=== PATIENT | female | born 1980 | race Caucasian/White ===

== ENCOUNTER 2019-11-19 08:23 | Outpatient (CLI) | payer BC, SELFPAY ==
--- NOTE | 2019-11-19 | USCV_ITS ---
Hilario Culver Age: 38 Gender: F : 1980 Exam Date: 11/19/2019 08:56 Ordering Phys: Technologist: Sarah Guardado [place] [facility] [place]: ASD BP: / HR: 83 Rhythm: Sinus Technical Quality: Good MEASUREMENTS (Male / Female) Normal Values 2D ECHO LV Diastolic Diameter PLAX 4.8 cm 4.2 - 5.9 / 3.9 - 5.3 cm LV Systolic Diameter PLAX 3.2 cm LV Chamber Size 4.5 cm IVS Diastolic Thickness 0.9 cm 0.6 - 1.0 / 0.6 - 0.9 cm IVS Systolic Thickness 1.2 cm LVPW Diastolic Thickness 0.7 cm 0.6 - 1.0 / 0.6 - 0.9 cm LVPW Systolic Thickness 1.0 cm RV Chamber Size 3.3 cm LVOT Diameter 2.0 cm LV Ejection Fraction 2D Teich 61.5 % LV Ejection Fraction MOD 2C 52.5 % LV Ejection Fraction 2C AL 54.8 % LA Diameter 2.7 cm LA Width 2.8 cm LA Height 3.6 cm RA Width 2.8 cm RA Height 4.3 cm Aorta at Sinotubular Diameter 2.5 cm M-MODE LV Diastolic Diameter MM 4.8 cm 4.2 - 5.9 / 3.9 - 5.3 cm LV Systolic Diameter MM 2.9 cm LV Ejection Fraction MM Teich 69.7 % IVS Diastolic Thickness MM 0.8 cm 0.6 - 1.0 / 0.6 - 0.9 cm IVS Systolic Thickness MM 1.2 cm LVPW Diastolic Thickness MM 0.7 cm 0.6 - 1.0 / 0.6 - 0.9 cm LVPW Systolic Thickness MM 1.1 cm RV Diastolic Diameter MM 1.2 cm Aortic Annulus Diameter 2.8 cm LA Ao Ratio MM 1.0 MV E Point Septal Separation 0.5 cm DOPPLER AV Peak Velocity 109.0 cm/s LVOT Peak Velocity 93.0 cm/s AV Area Cont Eq vti 2.5 cm squared AV Area Cont Eq pk 2.7 cm squared MV Area PHT 3.4 cm squared Mitral E to A Ratio 1.3 MV E' Velocity 10.0 cm/s Mitral E to MV E' Ratio 9.2 Mitral E to LV E' Lateral Ratio 8.0 Mitral E to LV E' Septal Ratio 11.0 TR Peak Velocity 253.7 cm/s TR Peak Gradient 25.8 mmHg TR Mean Velocity 214.5 cm/s TR Mean Gradient 19.2 mmHg TR Velocity Time Integral 84.9 cm TV Peak E Velocity 60.0 cm/s Right Atrial Pressure 3.0 mmHg Pulmonary Artery Systolic Pressu 28.7 mmHg PV Peak Velocity 64.0 cm/s FINDINGS Left Ventricle Normal left ventricular size, systolic function and wall thickness, with no regional wall motion abnormalities. Left ventricular ejection fraction is estimated at 60 %. Normal diastolic function. Right Ventricle Normal right ventricular size and systolic function, RVSP 28.7 mmHg. Right Atrium Normal right atrial size. Right atrial pressure estimated at 3 mm Hg. No evidence of ASD/ PFO by bubble study. Left Atrium Normal left atrial size. Mitral Valve Structurally normal mitral valve. No mitral valve stenosis. Trace mitral valve regurgitation. Aortic Valve Structurally normal trileaflet aortic valve. No aortic valve stenosis. No aortic valve regurgitation. Tricuspid Valve Structurally normal tricuspid valve. Trace tricuspid valve regurgitation. Pulmonic Valve Structurally normal pulmonic valve. No pulmonary valve stenosis. No pulmonary valve regurgitation. Pericardium No pericardial effusion. Aorta Normal-sized aortic root. CONCLUSIONS 1. Normal left ventricular size, systolic function and wall thickness, with no regional wall motion abnormalities. Left ventricular ejection fraction is estimated at 60 %. Normal diastolic function. 2. Normal right ventricular size and systolic function, RVSP 28.7 mmHg. 3. No significant valvular abnormality. 4. The previously noted ASD/ PFO was not visualized on this study. MAI is recommended if clinically indicated. Kyara Arora MD (Electronically Signed) Final Date: 22 November 2019 22:38 S
== END 2019-11-19 08:24 | disposition home or self-care (01) ==
LOC: RAD 08:27
PROVIDERS: PCP Nurse Practitioner Family; Visit Provider Internal Medicine Cardiovascular Disease
DX: Q21.1 Atrial septal defect (principal)
CPT/HCPCS: C8929

== ENCOUNTER → 2019-12-16 15:35 | Outpatient (BNVA) | payer BC, SELFPAY | PROVIDERS: Family Provider Nurse Practitioner Family; Visit Provider Obstetrics & Gynecology | DX: N92.1 Excessive and frequent menstruation with irregular cycle (principal) | CPT/HCPCS: 80053; 81001 ==

== ENCOUNTER 2019-12-22 11:03 | Inpatient (IN) | payer BC, SELFPAY ==
[2019-12-22] VITALS (29 sets, daily range): BP systolic 99–135; BP diastolic 61–78; PULSE 59–88; RESP 14–108; TEMP 36.3–37; O2SAT 93–99; BMI 29.9
[2019-12-22 06:05] LABS: OR HCG Qualitative Urine Negative (Negative)
--- NOTE | 2019-12-22 06:25 | ANES.PREANE2 ---
Pre-Anesthetic Assessment Pre-Anesthetic Assessment: Height/Weight: Height 1.65 m Weight 81.647 kg Temp Pulse Resp BP Pulse Ox 97.4 F L 84 18 109/66 97 12/22/19 06:07 12/22/19 06:07 12/22/19 06:07 12/22/19 06:07 12/22/19 06:07 Preop Diagnosis: Uterine fibroids, Menorhagia, Dysmenorrhea Proposed Procedure: Operation Date: 12/22/19 07:00 Proposed Procedures p Total Abdominal Hysterectomy/vertical incision 86571 D21.9 N92.0 N94.6 N39.3(Not Applicable) - Julio Cesar Mares MD s Salpingo Oophorectomy (Open)(Not Applicable) - Julio Cesar Mares MD Familial anesthetic complications: None Last intake: last took lovenox last night, NPO > 8 hrs No phentermine since december 03 Social: Social History: Tobacco and No alcohol Exam: Pre-Anes Outpt Exam: alert, oriented x 3, clear to auscultation bilaterally and regular rate & rhythm Airway: Cervical ROM: WNL MP: 1 Dentition: Other (pulled ) Pulmonary: Pulmonary: None reported CV/HEM: Comments: PFO w/ clot that landed in kidney in 2007 : : None reported Hepatic: Hepatic: None reported GI: GI: None reported Metabolic: Metabolic: Hyperlipidemia Musc/skel: Musc/skel: None reported Neuropsych: Neuropsych: None reported Anesthetic Plan: ASA status: 3 Anesthesia: General Risk of > 500 ml blood loss (7ml/kg in children): No PFSH Anesthesia PFSH: Medical History Chronic anticoagulation 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 Reported to be secondary to clot passing through patent foramen ovale. Work-up included negative beta-2 glycoprotein and cardiolipin, [place] [address] (see scanned lab reports) Hyperlipidemia Patent foramen ovale With right to left cardiac shunt. 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 Surgical History History of cholecystectomy (~1996) [facility] Family History Family/Other Breast cancer maternal great aunt Ovarian cancer maternal aunt Heart disease paternal family in general Mother Stroke Grandfather Hypertension paternal Hypercholesteremia maternal Father Diabetes Hypertension Social History Smoking and tobacco status: current every day smoker cigarettes Packs smoked per day: 0.5 Alcohol intake: never Female Reproductive History: Date of last menstrual period: 12/07/19 Data Anesthesia Other Labs: Laboratory Results - last 48 hr 12/22/19 06:01 Urine HCG, Qual Negative Cardiac Studies: Echocardiogram 11/19/19
[2019-12-22] MEDS: sodium chloride 0.9% 1,000 ML 30 ML IV (06:39)
[2019-12-22 06:41] LABS: Basophils # 0.1 10^3/uL (0.0-0.1); Basophils % 0.8 %; Eosinophils # 0.3 10^3/uL (0.0-0.8); Eosinophils % 3.6 %; Hematocrit 42.2 % (37.0-47.0); Hemoglobin 13.7 g/dL (11.5-15.3); Lymphocytes # 3.3 10^3/uL (0.8-4.8); Lymphocytes % 35.1 %; Mean Corpuscular HGB Conc 32.5 g/dL (30.0-36.0); Mean Corpuscular Hemoglobin 29.1 pg (28.0-34.0); Mean Corpuscular Volume 89.6 fL (81-99); Mean Platelet Volume 10.5 fL (7.4-10.4); Monocytes # 0.5 10^3/uL (0.2-0.9); Monocytes % 5.2 %; Neutrophils # 5.22 10^3/uL (1.8-7.7); Neutrophils % 54.9 %; Nucleated Red Blood Cells % 0 %; Platelet Count 261 10^3/cmm (130-400); Red Blood Count 4.71 10^6/uL (4.1-5.3); Red Cell Distribution Width 13.1 % (12.1-15.1); White Blood Count 9.5 10^3/uL (4.0-10.0)
[2019-12-22] MEDS: ketorolac 30 mg/mL INJ IVP ×3 (06:41→19:59)
[2019-12-22] MEDS: phenazopyridine 100 mg Tablet 200 MG PO ×3 (06:42→20:22)
--- NOTE | 2019-12-22 06:44 | P.HPUD_ITS ---
Surgery/Procedure H&P Update DATE OF PROCEDURE: December 22, 2019 DATE H&P PERFORMED: 12/03/19 H&P UPDATE INFORMATION: I have reviewed H&P completed within last 30 days, I have examined patient prior to procedure, No changes to prior documentation and H&P is in [facility] [place] EMR on date indicated PREOP DIAGNOSIS: Uterine fibroids, Menorhagia, Dysmenorrhea PLANNED PROCEDURE: Operation Date: 12/22/19 07:00 Proposed Procedures p Total Abdominal Hysterectomy/vertical incision 81510 D21.9 N92.0 N94.6 N39.3(Not Applicable) - Julio Cesar Mares MD s Salpingo Oophorectomy (Open)(Not Applicable) - Julio Cesar Mares MD Related Problem List Diagnoses (1) Fibroids: (2) Menorrhagia: Qualifiers: Menorrhagia type: with irregular cycle Qualified Code(s): N92.1 - Excessive and frequent menstruation with irregular cycle (3) Dysmenorrhea:
[2019-12-22 06:53] LABS: INR 0.99 (0.8-1.2)
--- NOTE | 2019-12-22 08:08 | SUR.OPER ---
Called and updated on surgical progress.
--- NOTE | 2019-12-22 09:22 | SUR.OPER ---
notified of surgical progress.
--- NOTE | 2019-12-22 09:35 | PM.OP ---
Operative Report Date of procedure: December 22, 2019 Pre-op Diagnosis: Uterine fibroids, Menorhagia, Dysmenorrhea Post-op Diagnosis: Uterine fibroids, Menorrhagia, Dysmenorrhea Procedure Done: Total abdominal hysterectomy with bilateral salpingectomy Specimens removed/disposition: Uterus, cervix, bilateral fallopian tubes Surgeon: Julio Cesar Mares Costumed Character: None Anesthesia: General Estimated blood loss (mL): 125 IV fluids (mL): 1,300 Urine output (mL): 125 Complications: None Findings: Several small submucosal fibroids with a large approximately 6 cm anterior lower uterine segment fibroid. Left corpus luteal cyst identified. Brief History: Patient is a 39-year-old white female 2, para 2 who had presented to the office reporting an approximately 10-year history of worsening bleeding problems. She typically will bleed 5 to 9 days at a time with a number of heavy days varying from cycle to cycle. She typically changes a pad and a tampon at least every hour and will bleed through to her clothing with almost every menses. She typically does not leave home when she is on her menses due to the heaviness of the bleeding. She reports the passage of up to baseball sized clots at times. She also reports significant cramping with the periods and typically uses Flexeril to help with the cramping. She is on long-term anticoagulation therapy which is thought to be contributing to the heaviness of her bleeding. She had an ultrasound performed which showed an approximately 5 cm fibroid in the anterior uterus. Other small fibroids were also noted. Treatment options were discussed with her. Due to the location of the fibroid and no significant uterine descent, decision was made to proceed with an abdominal hysterectomy. Because of need for anticoagulation therapy to start shortly after surgery, vertical incision was recommended to limit dissection of the anterior abdominal wall. She is presenting for surgery at this time. Procedure: Patient was taken to the operating room were general anesthesia was obtained. She was prepped and draped in usual sterile fashion in a dorsal supine position. Sequential compression boots were placed prior to starting the case. Chance catheter was inserted. A vertical lower abdominal skin incision was made with a knife and carried down to the underlying fascia with electrocautery. Fascia was incised in the midline extended superiorly and inferiorly with Islas scissors. Rectus muscles were in the midline. Peritoneum was sharply entered. Peritoneal incision was extended superiorly and inferiorly with good visualization of the bladder. A Bookwalter retractor was placed and bowel was then packed with wet laparotomy sponges. The uterus was inspected and she was noted to have multiple small subserosal fibroids with an approximately 6 cm anterior lower uterine segment fibroid which made it very difficult to visualize the bladder area. The corners of the uterus were grasped with Maggy clamps. The right round ligament was doubly clamped, cut, and then suture ligated with 0 Vicryl suture. Broad ligament was opened and extended superiorly and inferiorly. A window was made in the medial leaf of the broad ligament underneath the utero-ovarian ligament. Straight clamps were placed across the tube, utero-ovarian ligament, and vessels. This was cut and then tied with near and far stitch of 0 Vicryl suture. It was tied with a free tie of 0 Vicryl suture. The left round ligament was doubly clamped, cut, and suture ligated with 0 Vicryl suture. Broad ligament was opened and extended superiorly and inferiorly. Window was made in the medial leaf of the broad ligament underneath the utero-ovarian ligament. Straight clamps were placed across the tube, utero-ovarian ligament, and vessels. This was cut and then tied with a near and far stitch of 0 Vicryl suture. Was tied with a free tie of 0 Vicryl suture. Uterine vessels were skeletonized. Curved clamp was placed across the uterine vessels at the upper edge of the lower uterine segment bilaterally. In order to facilitate visualization of the cervix area, decision was made to amputate the main body of the uterus at the upper edge of the lower uterine segment, which would also get the fibroid out of the way. Using a knife, the uterus was amputated. The uterine vessels were tied with 0 Vicryl suture bilaterally. Bladder was then dissected off of the lower uterine segment bluntly. Using straight clamps, the uterine vessels were clamped along the cervix bilaterally. The pedicles were then cut and then tied with 0 Vicryl suture. This was repeated on both sides until the upper edge of the vagina was reached. At this point curved clamps were placed across the vagina just below the cervix. The cervix was then amputated from the vagina using Carla scissors. The right corner was tied with 0 Vicryl suture in a Kaylyn fashion. The left corner of the cuff was tied with 0 Vicryl suture in a Kaylyn fashion. However during the securing of the stitch, the suture broke. At this point the area had already been unclamped. As a result the corner was secured with a [id number] stitch of 0 Vicryl suture. Because the majority of the cuff was now open, the edges of the vaginal cuff were oversewn with 0 Vicryl suture in a running locking fashion. The anterior and posterior portion of the cuff was then closed using 0 Vicryl suture in an interrupted [id number] fashion until the cuff was completely closed. Both ovaries were inspected and were normal in appearance. She did have a left corpus luteal cyst present. The left fallopian tube was grasped with a Carson clamp. Clamps were placed across the mesosalpinx and the tube excised. The pedicles were tied with 0 Vicryl suture. This was repeated on the contralateral side in a similar fashion. Both fallopian tubes were removed. Pelvis was then thoroughly irrigated and noted to be hemostatic. All pedicles were inspected and noted to be hemostatic. Packing and Bookwalter retractor were removed. The peritoneum, rectus muscles, and fascia was closed as a mass closure using looped 0 PDS suture. Subcutaneous layer was reapproximated using 3-0 plain suture in a running fashion. Skin was reapproximated using skin herminia. DRAINS: Chance catheter POSTOPERATIVE STATUS: The patient was transferred to the recovery room in satisfactory condition.
[2019-12-22] MEDS: fentaNYL 50 mcg/mL INJ 2mL IVP ×2 (09:40→09:54)
[2019-12-22] MEDS: morphine 4 mg/mL SDV 1 mL 2 MG IVP ×2 (10:06→10:19)
--- NOTE | 2019-12-22 10:59 | SUR.PHASEI ---
1050 PT AWAKES TO VOICE EASILLY PT TO FLOOR PER CART HANDOFF AT BEDSIDE WITH JYOTSNA RN, PT MOVES SELF TO BED ABD DRESSING D/I , BILAT SCDS ON AND WORKING, IV PATENT, CAMPUZANO TO DD SMALL AMT ORANGE URINE NOTED APPROX 50 ML NOT EMPTIED, PT STATES PAIN IS UNCHANGED FROM EARLIER BUT FACE SCALE 3 AND MUCH MORE RELAXED. BP 111/72 HR 72 RESP 18 , SATS 94% ON RA.
[2019-12-22 11:37] LABS: Specific Gravity, Urine 1.025 (1.005-1.030); Urine Appearance Clear (CLEAR); Urine Color Orange (Yellow); pH Urine 5 (5-7)
[2019-12-22 11:38] LABS: Add Urine Culture? Yes; Add Urine Microscopic? YES; Bacteria Urine 1+; Bilirubin Urine 1+ (NEGATIVE); Blood Urine 2+ (Negative); Glucose Urine UA Norm (Normal); Ketones Urine Negative (Negative); Leukocyte Esterase Urine Negative (Negative); Nitrate Urine Positive (Negative); Protein Urine 1+ (Negative); Squamous Epithelial Cell Urine 0-4 (0-5); Urobilinogen Urine 1 mg/dL (Negative); WBC Urine RARE /hpf (0-5)
[2019-12-22] MEDS: dextrose 5%-lactated ringers 1,000 ML 125 ML IV ×2 (12:13→19:59)
[2019-12-22] MEDS: morphine 4 mg/mL SDV 1 mL IVP (13:04)
[2019-12-22] MEDS: ondansetron 2 mg/ML SDV 2 mL 4 MG IVP (13:12)
[2019-12-22] MEDS: HYDROcodone-acetaminophen 5-325 mg Tablet PO ×2 (15:01→20:22)
--- NOTE | 2019-12-22 16:00 | PC.NURSE ---
pt got self up to bathroom, did not void in hat. reports sounded like alot
[2019-12-22] MEDS: HYDROmorphone 1 mg/mL INJ 1 mL 0.5 MG IVP ×2 (16:11→17:55)
[2019-12-22] MEDS: enoxaparin 80 mg/0.8 mL Syringe SUBCUT (17:54)
[2019-12-22] MEDS: docusate sodium 100 mg Capsule PO (17:55)
[2019-12-23] MEDS: ketorolac 30 mg/mL INJ IVP ×2 (00:35→06:02)
[2019-12-23 03:59] VITALS: BP 108/63; PULSE 68; RESP 16; TEMP 36.8; O2SAT 98
[2019-12-23] MEDS: dextrose 5%-lactated ringers 1,000 ML 125 ML IV (04:30)
[2019-12-23] MEDS: HYDROcodone-acetaminophen 5-325 mg Tablet PO ×3 (04:43→15:52)
[2019-12-23 04:45] LABS: Hematocrit 35.3 % (37.0-47.0); Hemoglobin 11.4 g/dL (11.5-15.3); Mean Corpuscular HGB Conc 32.3 g/dL (30.0-36.0); Mean Corpuscular Volume 89.8 fL (81-99); Mean Platelet Volume 10.4 fL (7.4-10.4); Platelet Count 225 10^3/cmm (130-400); Red Blood Count 3.93 10^6/uL (4.1-5.3); Red Cell Distribution Width 13.2 % (12.1-15.1); White Blood Count 13.9 10^3/uL (4.0-10.0)
--- NOTE | 2019-12-23 07:08 | PM.PN ---
Subjective Subjective: Interval history: Patient reports feeling a little better this morning. States her pain has been controlled with the pills. She denies shortness of breath or chest pains. She denied lightheadedness or dizziness with ambulation. She denied nausea or vomiting. She denied passing flatus. She reports she has been urinating frequently. Vitals/I&O/Wt Last Vital Signs Temp 98.3 F 12/23/19 03:59 Pulse 68 12/23/19 03:59 Resp 16 12/23/19 03:59 BP 108/63 12/23/19 03:59 Pulse Ox 98 12/23/19 03:59 12/22/19 12/23/19 12/23/19 22:59 06:59 14:59 Intake Total 970.833 / 2830.833 1000 / 3830.833 Output Total 800 / 1825 2350 / 4175 Balance 170.833 / 1005.833 -1350 / -344.167 Weight last 48 hrs Weight 179 lb 15.766 oz Physical Exam Const: COMMON NORMALS: no acute distress, average body habitus, alert and well nourished GENERAL APPEARANCE: well developed ORIENTATION/CONSCIOUSNESS: Yes oriented to person, Yes oriented to place and Yes oriented to time Resp: COMMON NORMALS: normal respiratory effort and clear to auscultation bilaterally AUSCULTATION: clear to auscultation bilaterally Cardio: COMMON NORMALS: regular rate, regular rhythm, No gallops present (Cardio), No murmurs present (Cardio) and No rub (Cardio) RATE: regular rate RHYTHM: regular rhythm PERIPHERAL PULSES: posterior tibial pulses present GI: COMMON NORMALS: Soft to palpation, No hepatosplenomegaly present and no masses INSPECTION: Yes incision (Dressing is dry.) AUSCULTATION: Yes Hypoactive bowel sounds present (With minimal bowel sounds present) PALPATION: Yes Soft to palpation, Yes Tenderness to palpation present (GI) (In the lower abdomen.), Yes No hepatosplenomegaly present and No Hernia present : EXTERNAL FEMALE EXAM: No Hernia present Extremity: COMMON NORMALS: no clubbing, cyanosis or edema and no calf tenderness Neuro: SENSORIUM/ORIENTATION: Yes alert, Yes oriented to person, Yes oriented to place and Yes oriented to time Psych: COMMON NORMALS: normal affect MOOD & AFFECT: Yes euthymic mood Urinary Catheter Management^: Chance: Cath Placed During This Visit: yes, but has since been removed by the nurse Reason for Continuing Indwelling Catheter: Perioperative Use in Selected Surgeries Urinary Catheter Date of Insertion: 12/22/19 Urinary Catheter Time of Insertion: 07:15 Date Urinary Catheter Removed: 12/22/19 Time Urinary Catheter Discontinued: 12:35 Data : 12/23/19 04:36 A&P Assessment and plan (1) Fibroids: Postoperative day 1, status post ANA MARÍA with bilateral salpingectomy. Surgical findings were reviewed with the patient. She had a large lower uterine segment fibroid pushing on the bladder. Discussed with patient that a lot of the lower abdominal discomfort may be related to the bladder irritation from the surgery and where this fibroid was located. She did report some improvement and her discomfort/pain after removal of the catheter but it is not completely gone away. Discussed with her that the pain will take time to go away. She has been continued on oral pain medication with Dilaudid available for breakthrough pain if needed. Keep n.p.o. except for ice chips and sips until good bowel sounds present. Continue with IV fluids. Encourage ambulation. May shower later today if desired. Status: Acute (2) Menorrhagia: Status: Acute Qualifiers: Menorrhagia type: with irregular cycle Qualified Code(s): N92.1 - Excessive and frequent menstruation with irregular cycle (3) Dysmenorrhea: Status: Acute (4) Chronic anticoagulation: Patient is on chronic anticoagulation with Coumadin due to a paradoxical embolism to the kidney. She has a small PFO in her heart previously noted. Patient had been switched from Coumadin to Lovenox prior to surgery. She was restarted on Lovenox last night. If she does well through the day here plan is to restart Coumadin this evening. She will need to be continued on Lovenox until her INR indicates therapeutic levels. Status: Acute Attestations Medical Necessity Statement*: Patient is still n.p.o. due to lack of bowel sounds following abdominal surgery. 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
[2019-12-23] MEDS: phenazopyridine 100 mg Tablet 200 MG PO ×3 (09:27→20:56)
[2019-12-23] MEDS: enoxaparin 80 mg/0.8 mL Syringe SUBCUT ×2 (09:28→19:21)
[2019-12-23] MEDS: docusate sodium 100 mg Capsule PO ×2 (09:28→19:14)
[2019-12-23 10:20] VITALS: BP 126/72; PULSE 82; RESP 17; TEMP 37; O2SAT 98
[2019-12-23 16:45] VITALS: BP 120/87; PULSE 71; RESP 17; TEMP 36.9; O2SAT 98
[2019-12-23] MEDS: warfarin 5 mg Tablet PO (20:56)
[2019-12-24] MEDS: promethazine 25 mg Tablet PO (06:23)
--- NOTE | 2019-12-24 06:32 | P.PN_ITS ---
Subjective Subjective: Interval history: Reports feeling nauseated this morning and states she has felt nauseated during most of the night. She states she has not taken any pain medication because she just wanted to try to avoid it if possible. She denies lightheadedness or dizziness with ambulation. She denied shortness of breath or chest pains. She denied any headaches. She reports passing gas one time this morning but nothing since then. She denies problems with urination. Vitals/I&O/Wt Last Vital Signs Temp 98.4 F 12/23/19 16:45 Pulse 71 12/23/19 16:45 Resp 17 12/23/19 16:45 BP 120/87 12/23/19 16:45 Pulse Ox 98 12/23/19 16:45 12/23/19 12/23/19 12/24/19 14:59 22:59 06:59 Intake Total 1287.5 / 1287.5 800 / 2087.5 Output Total 1725 / 1725 Balance -437.5 / -437.5 800 / 362.5 Weight last 48 hrs Weight 179 lb 15.766 oz Physical Exam Const: COMMON NORMALS: no acute distress, average body habitus, alert and well nourished GENERAL APPEARANCE: well developed ORIENTATION/CONSCIOUSNESS: Yes oriented to person, Yes oriented to place and Yes oriented to time Resp: COMMON NORMALS: normal respiratory effort and clear to auscultation bilaterally AUSCULTATION: clear to auscultation bilaterally Cardio: COMMON NORMALS: regular rate, regular rhythm, No gallops present (Cardio), No murmurs present (Cardio) and No rub (Cardio) RATE: regular rate RHYTHM: regular rhythm PERIPHERAL PULSES: posterior tibial pulses present GI: OTHER: Abdominal exam was deferred at this time. Patient is sitting up in chair, not wanting to move due to nausea. Neuro: SENSORIUM/ORIENTATION: Yes alert, Yes oriented to person, Yes oriented to place and Yes oriented to time Psych: COMMON NORMALS: normal affect MOOD & AFFECT: Yes euthymic mood Urinary Catheter Management^: Chance: Cath Placed During This Visit: yes, but has since been removed by the nurse Reason for Continuing Indwelling Catheter: Perioperative Use in Selected Surgeries Urinary Catheter Date of Insertion: 12/22/19 Urinary Catheter Time of Insertion: 07:15 Date Urinary Catheter Removed: 12/22/19 Time Urinary Catheter Discontinued: 12:35 Data : 07/22/20 04:36 Micro: Microbiology 12/22/19 11:05 Urine Culture - Preliminary Urine,Clean Catch A&P Assessment and plan (1) Fibroids: Postoperative day 2, status post ANA MARÍA with bilateral salpingectomy. Until this morning, patient had been tolerating clear liquids without nausea or vomiting. She was reporting passing flatus once this morning, but due to her current nausea, her diet will not be advanced and she will be kept on clear liquids at this time. If she continues to be nauseated, then additional evaluation for this will be necessary. Encourage ambulation. Pain medication use discussed with patient. Discussed with her that I do not recommend that she just lay there and pain because she is trying to avoid pain medication. If needed, she should take the medication. Status: Acute (2) Menorrhagia: Status: Acute Qualifiers: Menorrhagia type: with irregular cycle Qualified Code(s): N92.1 - Excessive and frequent menstruation with irregular cycle (3) Dysmenorrhea: Status: Acute (4) Chronic anticoagulation: Patient was restarted on Coumadin last night. She will be continued on Lovenox until after the third Coumadin dose. Patient was restarted on her usual home regimen. Status: Acute (5) Postoperative nausea: Patient reports being nauseated this morning. Since she does not currently have an IV due to it having infiltrated yesterday, will start with Phenergan tablets. However, if she does not keep the tablets down or she remains nauseated, then will need to restart IV for parenteral medication and IV hydration. Status: Acute Attestations Medical Necessity Statement*: Patient is reporting significant nausea this morning and is still only on clear liquids. 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
[2019-12-24] MEDS: docusate sodium 100 mg Capsule PO ×2 (09:23→17:09)
[2019-12-24] MEDS: phenazopyridine 100 mg Tablet 200 MG PO ×3 (09:23→20:06)
[2019-12-24 09:34] VITALS: BP 126/80; PULSE 99; RESP 16; TEMP 36.8; O2SAT 96
--- NOTE | 2019-12-24 09:41 | XR_ITS ---
WS: [id number] [facility], 12/24/2019 Clinical Data: Post Operative Nausea and Vomiting Comparison: None. Findings: No abnormal intraabdominal masses or calcifications are seen. There is no dilatated small bowel or ev idence of obstruction. There are clips in the right upper quadrant from a cholecystectomy. There is a moderate amount of fec al material throughout the colon. There is a small linear foreign body overlying the lateral aspect o f the right side of the abdomen which could be ingested material, a small foreign body within the abd omen or on the patient's skin. Midline pelvic surgical herminia are noted. 2. Moderate amount of fecal material:. XR/XR KUB portable [id number] Impression: 1. Negative for bowel obstruction.
[2019-12-24] MEDS: dextrose 5%-lactated ringers 1,000 ML 125 ML IV (10:30)
[2019-12-24] MEDS: ondansetron 2 mg/ML SDV 2 mL 4 MG IVP (10:30)
[2019-12-24] MEDS: enoxaparin 80 mg/0.8 mL Syringe SUBCUT ×2 (10:31→17:10)
[2019-12-24] MEDS: metoclopramide 5 mg/mL SDV 2 mL 10 MG IVP ×3 (11:20→23:00)
[2019-12-24 17:19] VITALS: BP 119/75; PULSE 85; RESP 16; TEMP 36.9; O2SAT 94
[2019-12-24 20:18] VITALS: BP 123/78; PULSE 88; RESP 16; TEMP 36.8
[2019-12-25] MEDS: metoclopramide 5 mg/mL SDV 2 mL 10 MG IVP ×2 (05:41→10:11)
[2019-12-25] MEDS: HYDROcodone-acetaminophen 5-325 mg Tablet PO (05:47)
[2019-12-25 05:49] VITALS: BP 120/76; PULSE 91; RESP 15; TEMP 36.9
[2019-12-25] MEDS: docusate sodium 100 mg Capsule PO (10:10)
[2019-12-25] MEDS: phenazopyridine 100 mg Tablet 200 MG PO (10:10)
[2019-12-25] MEDS: warfarin 5 mg Tablet PO (10:24)
[2019-12-25] MEDS: enoxaparin 80 mg/0.8 mL Syringe SUBCUT (10:24)
--- NOTE | 2019-12-25 10:55 | P.DS_ITS ---
Discharge Providers Date of Admission: 12/22/19 11:03 Date of Discharge: December 25, 2019 Attending Provider at Admission: Julio Cesar Mares MD Attending Provider at Discharge: Julio Cesar Mares MD Primary Care Provider: Eli Dhillon Diagnoses at Discharge Discharge Diagnosis (1) Fibroids: Status: Resolved (2) Menorrhagia: Status: Resolved Qualifiers: Menorrhagia type: with irregular cycle Qualified Code(s): N92.1 - Excessive and frequent menstruation with irregular cycle (3) Dysmenorrhea: Status: Acute (4) Chronic anticoagulation: Status: Acute (5) Postoperative nausea: Status: Resolved Reason for Visit Reason for Visit: Fibroids Menorrhagia Dysmenorrhea Urinary incontin Hospital Course Hospital Course: Patient is a 39-year-old white female 2, para 2 who had presented to the office with approximately 10-year history of worsening bleeding. She would bleed for 5 to 9 days at a time with heavy bleeding varying from cycle to cycle. She would change a tampon and a pad at least every hour and would still bleed through to her clothing. She reported up to baseball sized clots. During evaluation she had been found to have an approximately 5 cm uterine fibroid. She was also on long-term anticoagulant therapy which is thought to be also contributing to her heavy bleeding. As a result of her heavy bleeding, she had decided proceed to surgical treatment and was scheduled for hysterectomy. She was switched from Coumadin to Lovenox prior to surgery with her last dose of Lovenox being the night before surgery. She was admitted to the hospital where a total abdominal hysterectomy with bilateral salpingectomy was performed. She tolerated the surgery well. By the evening of the day of surgery, she had been re-started on Lovenox. She was reporting significant pain following surgery. On postoperative day 1, she reported some improvement of the pain with better control with oral medications. She was denying nausea or vomiting. She denied passing flatus. She was afebrile with stable vital signs. She was noted to have minimal bowel sounds. As a result, she was kept n.p.o. She had been started on clear liquids by the evening. She was started on her usual doses of Coumadin in the evening. On postoperative day 2, she reported feeling nauseated that morning and most of the preceding night. She reported she had not been taking the oral pain medication because she was afraid that it could make her nausea worse. She reported passage of minimal flatus that morning. She was treated with antiemetics. Her nausea worsened initially and as a result KUB was obtained. No evidence of obstruction or ileus was noted. As the day progressed, she reported feeling much better and she continued to pass flatus. On postoperative day 3, she reported that her nausea had completely resolved. She was tolerating liquids without nausea or vomiting. She was ambulating without lightheadedness or dizziness. Reported pain was well controlled. Reported continued passage of flatus and reported having had a bowel movement during the night. She denied problems with urination. Her diet was advanced to a regular diet and she tolerated it well. Physical exam: See below. Plan Patient discharged home. Discharge instructions were discussed with the patient. She was instructed to continue with her usual doses of Coumadin and to continue the Lovenox for 1 more day. She received prescriptions for ibuprofen and [place] [facility]. She was to follow-up in the office next week for staple removal. She was to then follow-up at her previously scheduled 2 and 6-week postoperative appointments. Physical Exam Const: COMMON NORMALS: no acute distress, average body habitus, alert and well nourished GENERAL APPEARANCE: well developed ORIENTATION/CONSCIOUSNESS: Yes oriented to person, Yes oriented to place and Yes oriented to time Resp: COMMON NORMALS: normal respiratory effort and clear to auscultation bilaterally AUSCULTATION: clear to auscultation bilaterally Cardio: COMMON NORMALS: regular rate, regular rhythm, No gallops present (Cardio), No murmurs present (Cardio) and No rub (Cardio) RATE: regular rate RHYTHM: regular rhythm GI: COMMON NORMALS: Soft to palpation, No hepatosplenomegaly present and no masses INSPECTION: Yes incision (Lower abdominal vertical incision well approximated with herminia present.) AUSCULTATION: Yes normoactive bowel sounds PALPATION: Yes Soft to palpation, Yes Tenderness to palpation present (GI) (In the lower abdomen.), Yes No hepatosplenomegaly present and No Hernia present : EXTERNAL FEMALE EXAM: No Hernia present Extremity: COMMON NORMALS: no clubbing, cyanosis or edema and no calf tenderness Neuro: SENSORIUM/ORIENTATION: Yes alert, Yes oriented to person, Yes oriented to place and Yes oriented to time Psych: COMMON NORMALS: normal affect MOOD & AFFECT: Yes euthymic mood Urinary Catheter Management^: Chance: Cath Placed During This Visit: yes, but has since been removed by the nurse Reason for Continuing Indwelling Catheter: Perioperative Use in Selected Surgeries Urinary Catheter Date of Insertion: 12/22/19 Urinary Catheter Time of Insertion: 07:15 Date Urinary Catheter Removed: 12/22/19 Time Urinary Catheter Discontinued: 12:35 Discharge Data Data Completed and Pending: Completed Studies During Hospitalization Category Date Time Status XR KUB portable [id number] Stat Exams 12/24/19 09:41 Completed Pathology: Surgic al [PTH] Routine Pth 12/22/19 09:13 Completed Vitals: Last Vital Signs Temp 98.4 F 12/25/19 05:49 Pulse 91 12/25/19 05:49 Resp 15 12/25/19 05:49 BP 120/76 12/25/19 05:49 Pulse Ox 94 12/24/19 17:19 Discharge Plan Discharge Patient Disposition: Home Condition: Stable Prescriptions: New hydrocodone-acetaminophen 5-325 mg Tablet 1 - 2 tab PO Q6H PRN (Reason: Moderate To Severe Pain) Qty: 30 RF: 0 ibuprofen 800 mg Tablet 800 mg PO TID PRN (Reason: pain) Qty: 40 RF: 0 Continued warfarin 5 mg tablet 5 mg PO DAILY RF: 0 warfarin 7.5 mg tablet 7.5 mg PO DAILY RF: 0 aspirin 81 mg tablet,delayed release (DR/EC) 81 mg PO DAILY RF: 0 Complete Multivitamin Tablet 1 tab PO DAILY RF: 0 loratadine [Allergy Relief (loratadine)] 10 mg tablet 10 mg PO DAILY RF: 0 rosuvastatin 5 mg tablet 5 mg PO DAILY RF: 0 cyclobenzaprine 5 mg tablet 5 mg PO TID PRN (Reason: Muscle Pain) RF: 0 phentermine 37.5 mg capsule 37.5 mg PO DAILY RF: 0 enoxaparin [Lovenox] 80 mg/0.8 mL syringe 80 mg SUBCUT BID Qty: 12 RF: 0 Discharge Orders: Discharge Order (Routine); Ordered 12/25/19 Ordered By: Julio Cesar Mares Referrals: Julio Cesar Mares MD [Physician] - (* Your 1 week appointment for staple removal is on January 01, 2020 at 12:45. * Your 2 week incision check is January at 12:45. * Your 6 week follow up appointment is February 05, 2020 at 2:45.) Discharge Diet: Regular Discharge Activity: Limit activity as instructed Patient Instructions: Hydrocodone/Acetaminophen (By mouth), Ibuprofen (By mouth), Warfarin (By mouth), Abdominal Hysterectomy (DC), Staple Care (DC), OB Abdominal Surgery - [facility], OB Discharge Report Activity Restrictions/Additional Instructions: Continue usual coumadin regimen. Continue Lovenox today and tomorrow and then stop it. Discharge Date/Time: 12/25/19 11:25 Discharge Attestations Time Spent in Discharge Care*: less than 30 min Quality Metrics Clinical Quality Measures During this hospital stay, did patient experience: None Coding Level of Care Code Acute [employer] Person for [employer] Fwd Diagnoses Fibroids D21.9 Menorrhagia N92.1 Menorrhagia type: with irregular cycle Dysmenorrhea N94.6 Chronic anticoagulation Z79.01 Postoperative nausea R11.0; Z98.890
--- NOTE | 2019-12-25 11:03 | PC.SOCIAL ---
Patient was False Trigger, No needs.
[2019-12-25 11:20] VITALS: BP 130/84; PULSE 104; RESP 17; TEMP 36.6; O2SAT 98
--- NOTE | 2019-12-25 16:09 | PC.RESP ---
SMOKING CESSATION INFORMATION SENT TO PATIENT.
== END 2019-12-25 11:25 | disposition home or self-care (01) | DRG 742 ==
LOC: OBGYN 11:03
PROVIDERS: Admitting Provider Obstetrics & Gynecology; PCP Nurse Practitioner Family; Visit Provider Obstetrics & Gynecology
PROC: 0UT90ZZ Resection of Uterus, Open Approach (ICD-10-PCS; CPT 58150; principal; 2019-12-22 07:00)
PROC: 0UT90ZZ Resection of Uterus, Open Approach (ICD-10-PCS; CPT 58700; 2019-12-22 07:00)
DX: N92.1 Excessive and frequent menstruation with irregular cycle (principal); Q21.1 Atrial septal defect; D25.0 Submucous leiomyoma of uterus; N94.6 Dysmenorrhea, unspecified; Z79.01 Long term (current) use of anticoagulants; Z79.82 Long term (current) use of aspirin
CPT/HCPCS: 12345; 36415; 51702; 74018; 81001; 81003; 81025; 84703; 85025; 85027; 85610; 86850; 86900; 87086; 88307; 96365; 96372; 96375; J0131; J0690; J1100; J1170; J1650; J1885; J2270; J2405; J2704; J2710; J2765; J3010; J3490; J7030; Q0169

== ENCOUNTER → 2021-02-08 13:34 | Outpatient (BNVA) | payer OTHER, SELFPAY | PROVIDERS: PCP Nurse Practitioner Family; Visit Provider Internal Medicine | DX: R76.8 Other specified abnormal immunological findings in serum (principal); M25.50 Pain in unspecified joint; Z11.59 Encounter for screening for other viral diseases; Z79.899 Other long term (current) drug therapy; Q21.1 Atrial septal defect; Z79.01 Long term (current) use of anticoagulants; F17.210 Nicotine dependence, cigarettes, uncomplicated | CPT/HCPCS: 36415; 99203 ==

== ENCOUNTER 2021-02-08 15:08 | Outpatient (CLI) | payer OTHER, SELFPAY ==
--- NOTE | 2021-02-08 15:19 | XR_ITS ---
WS: [id number] LEFT FOOT: 2 VIEW(S) TECHNIQUE: AP and lateral. HISTORY: M25.50 - Pain in unspecified joint COMPARISON: None available. No acute fracture or dislocation. No erosions or subluxation. Normal tarsal/metatarsal alignment. No soft tissue abnormality or bone destruction. XR/XR foot LT 2V [id number] IMPRESSION: Normal LEFT foot.
--- NOTE | 2021-02-08 15:19 | XR_ITS ---
WS: [id number] LEFT HAND: 2 VIEW(S) TECHNIQUE: PA and lateral. HISTORY: R76.8 - Other specified abnormal immunological findings findings, chronic pain. COMPARISON: None available. No acute fracture or dislocation. No soft tissue or bone abnormality. XR/XR hand LT 2V [id number] IMPRESSION: Normal LEFT hand.
--- NOTE | 2021-02-08 15:19 | XR_ITS ---
WS: [id number] SACROILIAC JOINTS TECHNIQUE: AP and oblique imaging is submitted. HISTORY: L40.9 - Psoriasis, unspecified COMPARISON: None available. Normal appearance of the SI joints with no sclerosis or erosions. No bone destruction. No soft tissue abnormality. XR/XR sacroiliac jts m 3V [id number] IMPRESSION: Normal SI joints.
--- NOTE | 2021-02-08 15:19 | XR_ITS ---
WS: [id number] RIGHT FOOT: 2 VIEW(S) TECHNIQUE: AP and lateral. HISTORY: M25.50 - Pain in unspecified joint COMPARISON: None available. No acute fracture or dislocation. No erosions. No subluxation. Normal tarsal/metatarsal alignment. No soft tissue abnormality or bone destruction. XR/XR foot RT 2V [id number] IMPRESSION: Normal RIGHT foot.
--- NOTE | 2021-02-08 15:19 | XR_ITS ---
WS: [id number] RIGHT HAND: 2 VIEW(S) TECHNIQUE: PA and lateral. HISTORY: R76.8 - Other specified abnormal immunological findings. COMPARISON: None available. No acute fracture or dislocation. No soft tissue or bone abnormality. XR/XR hand RT 2V [id number] IMPRESSION: Normal RIGHT hand.
== END 2021-02-08 15:09 | disposition home or self-care (01) ==
PROVIDERS: PCP Family Medicine; Visit Provider Internal Medicine
DX: M25.50 Pain in unspecified joint (principal); R76.8 Other specified abnormal immunological findings in serum; L40.9 Psoriasis, unspecified; Z11.59 Encounter for screening for other viral diseases
CPT/HCPCS: 72202; 73120; 73620; 81003; 82550; 82728; 82784; 83516; 83540; 83735; 84100; 86160; 86162; 86235; 86255; 86376; 86704; 86803; 87340

== ENCOUNTER → 2021-03-08 09:29 | Outpatient (BNVA) | payer OTHER, SELFPAY | PROVIDERS: PCP Family Medicine; Visit Provider Internal Medicine | DX: R76.8 Other specified abnormal immunological findings in serum (principal); M25.50 Pain in unspecified joint; K90.0 Celiac disease; M54.2 Cervicalgia; M54.9 Dorsalgia, unspecified; G89.29 Other chronic pain; F17.210 Nicotine dependence, cigarettes, uncomplicated | CPT/HCPCS: 99214 ==